=== PATIENT | male | born 1980 | race Caucasian/White ===

== ENCOUNTER 2020-07-19 20:18 | Inpatient (IN) | payer OTHER ==
[~2020-07-19] VITALS: Ht 185.4 cm; Wt 104.9 kg
[2020-07-19 20:22] VITALS: Ht 185.4 cm; Wt 104.9 kg
[2020-07-19 22:08] LABS: BASOPHIL % 0.4 % (0-2); PLATELET COUNT 211 x10^3mcL (130-400); RED CELL DISTRIBUTION WIDTH 13.9 % (11.5-14.5)
[2020-07-19 23:12] LABS: CALCIUM 7.9 mg/dL (8.5-10.1); CARBON DIOXIDE 24.3 mmol/L (21-32); CHLORIDE SERUM 100 mmol/L (98-107); CREATININE SERUM 0.9 mg/dL (0.7-1.3); GFR1 > 60 mL/min; GLUCOSE SERUM 111 mg/dL (74-106); POTASSIUM SERUM 3.9 mmol/L (3.5-5.1); SODIUM SERUM 134 mmol/L (136-145)
[2020-07-19 23:17] LABS: ALKALINE PHOSPHATASE 80 U/L (46-116); ALT/SGPT 102 U/L (16-63); AST/SGOT 119 U/L (15-37); BILIRUBIN TOTAL 0.8 mg/dL (0.20-1.00); TOTAL PROTEIN, SERUM 6.7 g/dL (6.4-8.2)
[2020-07-19 23:28] LABS: ALBUMIN 2.9 g/dL (3.4-5.0)
[2020-07-20 02:17] VITALS: BP 120/61
[2020-07-20 06:14] VITALS: BP 109/65
[2020-07-20 08:26] VITALS: BP 105/63
[2020-07-20 12:39] VITALS: BP 92/64
[2020-07-20 16:40] VITALS: BP 108/69
[2020-07-20 22:08] VITALS: BP 121/61
[2020-07-21 06:04] VITALS: BP 112/56
[2020-07-21 07:20] LABS: ALKALINE PHOSPHATASE 56 U/L (46-116); ALT/SGPT 97 U/L (16-63); AST/SGOT 130 U/L (15-37); BILIRUBIN TOTAL 0.7 mg/dL (0.20-1.00); CALCIUM 6.8 mg/dL (8.5-10.1); CARBON DIOXIDE 24.4 mmol/L (21-32); CHLORIDE SERUM 102 mmol/L (98-107); CREATININE SERUM 0.8 mg/dL (0.7-1.3); GFR1 > 60 mL/min; GLUCOSE SERUM 101 mg/dL (74-106); POTASSIUM SERUM 3.9 mmol/L (3.5-5.1); SODIUM SERUM 133 mmol/L (136-145)
[2020-07-21 07:25] LABS: ALBUMIN 2.1 g/dL (3.4-5.0)
[2020-07-21 08:45] VITALS: BP 105/56
[2020-07-21 11:33] LABS: BASOPHIL % 0.8 % (0-2); PLATELET COUNT 144 x10^3mcL (130-400); RED CELL DISTRIBUTION WIDTH 13.5 % (11.5-14.5)
[2020-07-21 12:45] VITALS: BP 101/66
[2020-07-21 16:45] VITALS: BP 115/70
[2020-07-21 20:50] VITALS: BP 112/77
[2020-07-22 05:30] VITALS: BP 107/64
[2020-07-22 07:36] LABS: BASOPHIL % 0.2 % (0-2); PLATELET COUNT 170 x10^3mcL (130-400)
[2020-07-22 08:01] LABS: ALKALINE PHOSPHATASE 66 U/L (46-116); ALT/SGPT 145 U/L (16-63); AST/SGOT 195 U/L (15-37); BILIRUBIN TOTAL 0.6 mg/dL (0.20-1.00); CALCIUM 7.5 mg/dL (8.5-10.1); CARBON DIOXIDE 24.5 mmol/L (21-32); CHLORIDE SERUM 105 mmol/L (98-107); CREATININE SERUM 0.8 mg/dL (0.7-1.3); GFR1 > 60 mL/min; GLUCOSE SERUM 123 mg/dL (74-106); MAGNESIUM 2.2 mg/dL (1.8-2.4); POTASSIUM SERUM 4.3 mmol/L (3.5-5.1); SODIUM SERUM 136 mmol/L (136-145)
[2020-07-22 08:02] LABS: ALBUMIN 2.1 g/dL (3.4-5.0); TOTAL PROTEIN, SERUM 5.5 g/dL (6.4-8.2)
[2020-07-22 08:18] VITALS: BP 112/74
[2020-07-22 13:17] VITALS: BP 120/72
[2020-07-22 16:11] VITALS: BP 110/73
[2020-07-22 22:29] VITALS: BP 126/75
[2020-07-23 06:06] VITALS: BP 103/61
[2020-07-23 08:08] LABS: ALBUMIN 2.2 g/dL (3.4-5.0); ALKALINE PHOSPHATASE 73 U/L (46-116); ALT/SGPT 161 U/L (16-63); AST/SGOT 198 U/L (15-37); BILIRUBIN TOTAL 0.5 mg/dL (0.20-1.00); CALCIUM 7.3 mg/dL (8.5-10.1); CARBON DIOXIDE 23.6 mmol/L (21-32); CHLORIDE SERUM 104 mmol/L (98-107); CREATININE SERUM 0.7 mg/dL (0.7-1.3); GFR1 > 60 mL/min; GLUCOSE SERUM 105 mg/dL (74-106); POTASSIUM SERUM 4.5 mmol/L (3.5-5.1); SODIUM SERUM 136 mmol/L (136-145); TOTAL PROTEIN, SERUM 5.3 g/dL (6.4-8.2)
[2020-07-23 08:21] LABS: PLATELET COUNT 190 x10^3mcL (130-400); RED CELL DISTRIBUTION WIDTH 12.6 % (11.5-14.5)
[2020-07-23 08:33] VITALS: BP 107/66
[2020-07-23 12:57] VITALS: BP 118/74
[2020-07-23 13:18] LABS: BAND NEUTROPHIL 3 % (0-10); MONOCYTE 14 % (0-7); SEGMENTED NEUTROPHILS 40 % (37-75)
[2020-07-23 13:19] LABS: rbc morphology (normal/abnorm) NORMAL (NORMAL)
[2020-07-23 16:57] VITALS: BP 136/84
[2020-07-23 21:43] VITALS: BP 103/66
[2020-07-24 05:58] VITALS: BP 113/75
[2020-07-24 08:10] LABS: ALKALINE PHOSPHATASE 86 U/L (46-116); ALT/SGPT 166 U/L (16-63); AST/SGOT 196 U/L (15-37); BILIRUBIN TOTAL 0.55 mg/dL (0.20-1.00); CALCIUM 7.8 mg/dL (8.5-10.1); CARBON DIOXIDE 24.9 mmol/L (21-32); CHLORIDE SERUM 107 mmol/L (98-107); CREATININE SERUM 0.7 mg/dL (0.7-1.3); GFR1 > 60 mL/min; GLUCOSE SERUM 87 mg/dL (74-106); MAGNESIUM 2.2 mg/dL (1.8-2.4); POTASSIUM SERUM 4.1 mmol/L (3.5-5.1); SODIUM SERUM 139 mmol/L (136-145)
[2020-07-24 08:15] LABS: ALBUMIN 2.2 g/dL (3.4-5.0); TOTAL PROTEIN, SERUM 6.1 g/dL (6.4-8.2)
[2020-07-24 08:42] LABS: PLATELET COUNT 207 x10^3mcL (130-400)
[2020-07-24 09:07] LABS: RED CELL DISTRIBUTION WIDTH 15.1 % (11.5-14.5)
[2020-07-24 09:13] VITALS: BP 110/69
[2020-07-24 12:01] VITALS: BP 97/53
[2020-07-24 15:48] VITALS: BP 114/62
[2020-07-24] MEDS ORDERED: FER300 PO (20:51)
[2020-07-24] MEDS ORDERED: FOL1 PO (20:51)
[2020-07-24] MEDS ORDERED: THERA TABLET400 MCG PO (20:52)
[2020-07-24] MEDS ORDERED: THI100 PO (20:52)
[2020-07-24] MEDS ORDERED: PANTOPRAZOLE SO20 M1 PO (20:52)
[2020-07-24 21:15] VITALS: BP 104/62
[2020-07-25 05:21] VITALS: BP 105/54
[2020-07-25 07:54] VITALS: BP 109/64
[2020-07-25 08:47] LABS: ALKALINE PHOSPHATASE 93 U/L (46-116); ALT/SGPT 172 U/L (16-63); AST/SGOT 198 U/L (15-37); BILIRUBIN TOTAL 0.53 mg/dL (0.20-1.00); CALCIUM 8.5 mg/dL (8.5-10.1); CARBON DIOXIDE 28.2 mmol/L (21-32); CHLORIDE SERUM 108 mmol/L (98-107); CREATININE SERUM 0.8 mg/dL (0.7-1.3); GFR1 > 60 mL/min; GLUCOSE SERUM 89 mg/dL (74-106); MAGNESIUM 2.2 mg/dL (1.8-2.4); POTASSIUM SERUM 4.9 mmol/L (3.5-5.1); SODIUM SERUM 140 mmol/L (136-145); TOTAL PROTEIN, SERUM 6.2 g/dL (6.4-8.2)
[2020-07-25 08:48] LABS: ALBUMIN 2.2 g/dL (3.4-5.0)
[2020-07-25 11:31] LABS: BASOPHIL % 0.5 % (0-2); PLATELET COUNT 233 x10^3mcL (130-400)
[2020-07-25] MEDS ORDERED: FER300 PO (12:18)
[2020-07-25] MEDS ORDERED: THI100 PO (12:18)
[2020-07-25] MEDS ORDERED: FOL1 PO (12:18)
[2020-07-25] MEDS ORDERED: PROTONIX TR40 M1 PO (12:18)
[2020-07-25] MEDS ORDERED: THERA TABLET400 MCG PO (12:18)
[2020-07-25 12:21] VITALS: BP 97/70
[2020-07-25 15:55] VITALS: BP 112/73
== END 2020-07-25 19:05 | disposition home or self-care (01) | DRG 177 ==
LOC: ED 20:18 → DU 23:41
PROVIDERS: Specialist; ADMIT Hospitalist; ATTEND Hospitalist
PROC: XW13325 Transfusion of Convalescent Plasma (Nonautologous) into Peripheral Vein, Percutaneous Approach, New Technology Group 5 (ICD-10-PCS; principal; 2020-07-22)
DX: U07.1 COVID-19 (principal); J12.89 Other viral pneumonia; J96.01 Acute respiratory failure with hypoxia; K92.2 Gastrointestinal hemorrhage, unspecified; D64.9 Anemia, unspecified; F10.20 Alcohol dependence, uncomplicated; Y90.9 Presence of alcohol in blood, level not specified
CPT/HCPCS: C9113; G0378; J0456; J0696; J2354; J2916; J3490; J7030; J7050; U0003